=== PATIENT | female | born 1995 | race Caucasian/White ===

== ENCOUNTER 2017-03-11 16:55 | Emergency (ER) | payer SELFPAY ==
[~2017-03-11] VITALS: Ht 162.6 cm; Wt 60.0 kg
[2017-03-11 16:57] VITALS: BP 126/64; PULSE 88; RESP 18; TEMP 97.7; O2SAT 99
[2017-03-11] MEDS ORDERED: POLY10O RIGHT EYE (17:13)
--- NOTE | 2017-03-11 17:14 | PD ---
HPI Chief Complaint: Exposure to Blood/Body Fluids Time Seen by Provider: 17:11 Travel History International Travel<30 days: No Contact w/Intl Traveler<30days: No Traveled to known affect area: No History of Present Illness HPI 21-year-old female presents to emergency Department with complaint of exposure to bodily fluids during a paracentesis to her right eye. She is a student was performing a paracentesis while here at [employer]. Flushed her eye for 10 minutes prior to arrival to the ER. Denies change in vision. Up-to-date on her tetanus vaccination. Has no other medical complaints. No known allergies. No other modifying factors or associated signs and symptoms. PFSH Past Medical History ?: Not Social History Alcohol Use: No Tobacco Use: No Substance Use: No Allergies-Medications (Allergen,Severity, Reaction): Coded Allergies: No Known Allergies (Unverified , 03/11/17) Reported Meds & Prescriptions Reported Meds & Active Scripts Active Polytrim Opth Drops (Polymyxin/Trimethoprim Sulfate) 10,000-0.1 Unit/Ml-% Soln 2 Drop RIGHT EYE Q6HR 7 Days Review of Systems Except as stated in HPI: all other systems reviewed are Neg Physical Exam Narrative GENERAL: Well-nourished, well-developed female patient, in no acute distress SKIN: Warm and dry. HEAD: Atraumatic. Normocephalic. EYES: Pupils equal and round at 3 mm. No drainage. Right eye without erythema , edema. Right Eye ph 7. ENT: Mucosa pink and moist. Airway patent. NECK: Trachea midline. CARDIOVASCULAR: Regular rate. RESPIRATORY: No accessory muscle use. GASTROINTESTINAL: Flat. NEUROLOGICAL: Awake and alert. Oriented 3. No obvious cranial nerve deficits. Motor grossly within normal limits. Normal speech. PSYCHIATRIC: Appropriate mood and affect; insight and judgment normal. Data Data Last Documented VS Vital Signs Date Time Temp Pulse Resp B/P Pulse Ox O2 Delivery O2 Flow Rate FiO2 03/11/17 16:57 97.7 88 18 126/64 99 MDM Medical Decision Making Medical Screen Exam Complete: Yes Emergency Medical Condition: Yes Medical Record Reviewed: Yes Differential Diagnosis Exposure to bodily fluid, eye exposure, medical clearance Narrative Course 21-year-old female with exposure to the right eye with bodily fluid during a paracentesis. I was flushed for 10 minutes prior to arrival to the ER. PH of the right eye is 7. Patient denies change in vision. Patient is up-to-date on her tetanus vaccination. The patient was provided with a prescription for Polytrim eyedrops. Patient verbalizes understanding and agreement with treatment plan. Patient is medically cleared and stable for discharge. Discussed reasons to return to the emergency department. Instructed patient to follow up with primary care provider. Patient agrees with treatment plan. The patients vital signs are stable and the patient is stable for outpatient follow- up and treatment. Patient discharged home, stable and in no acute distress. Diagnosis Primary Impression: Exposure to blood or body fluid Referrals: Primary Care Physician Patient Instructions: General Instructions Departure Forms: School Release, Return to School Date: March 12, 2017 Tests/Procedures, Work Release Enter return to work date: March 12, 2017 Additional Instructions: Antibiotic eyedrops as prescribed Follow-up with primary care provider Return to the emergency department immediately with worsening symptoms Med/Other Pt SpecificInfo: Prescription(s) given Scripts Polymyxin B-Trimethoprim Opth Drops (Polytrim Opth Drops)10,000-0.1 Unit/Ml-% Soln2 Drop RIGHT EYE Q6HR 7 Days Ref 0 Prov:Maude Rust 03/11/17 Disposition: 01 DISCHARGE HOME Condition: Stable Maude Rust March 11, 2017 17:14
== END 2017-03-11 17:26 | disposition home or self-care (01) ==
LOC: NEPK 16:55
DX: Z77.21 Contact with and (suspected) exposure to potentially hazardous body fluids (principal)
CPT/HCPCS: 99283

== ENCOUNTER 2017-03-12 17:04 | Emergency (ER) | payer SELFPAY ==
[~2017-03-12] VITALS: Ht 162.6 cm; Wt 59.0 kg
[~2017-03-12 17:04] MED LIST: POLY10O RIGHT EYE
[2017-03-12 17:05] VITALS: BP 118/76; PULSE 84; RESP 20; TEMP 97.6; O2SAT 96
--- NOTE | 2017-03-12 17:36 | PD ---
HPI Chief Complaint: Exposure to Blood/Body Fluids Time Seen by Provider: 17:36 Travel History International Travel<30 days: No Contact w/Intl Traveler<30days: No Traveled to known affect area: No History of Present Illness HPI Patient returns back to the emergency department after being seen yesterday after exposure with paracentesis fluid to her right eye needing blood draw for initiation of exposure protocol. She has no other medical complaints. No other modifying factors or associated signs and symptoms. PFSH Past Medical History ?: Not Social History Alcohol Use: No Tobacco Use: No Substance Use: No Allergies-Medications (Allergen,Severity, Reaction): Coded Allergies: No Known Allergies (Unverified , 03/12/17) Reported Meds & Prescriptions Reported Meds & Active Scripts Active Polytrim Opth Drops (Polymyxin/Trimethoprim Sulfate) 10,000-0.1 Unit/Ml-% Soln 2 Drop RIGHT EYE Q6HR 7 Days Review of Systems Except as stated in HPI: all other systems reviewed are Neg Physical Exam Narrative GENERAL: Well-nourished, well-developed female patient, in no acute distress SKIN: Warm and dry. HEAD: Atraumatic. Normocephalic. EYES: Pupils equal and round. No scleral icterus. No injection or drainage. ENT: Mucosa pink and moist. Airway patent. NECK: Trachea midline. CARDIOVASCULAR: Regular rate. RESPIRATORY: No accessory muscle use. GASTROINTESTINAL: Flat. MUSCULOSKELETAL: No obvious deformities. No clubbing. No cyanosis. No edema. NEUROLOGICAL: Awake and alert. Oriented 3. No obvious cranial nerve deficits. Motor grossly within normal limits. Normal speech. PSYCHIATRIC: Appropriate mood and affect; insight and judgment normal. Data Data Last Documented VS Vital Signs Date Time Temp Pulse Resp B/P Pulse Ox O2 Delivery O2 Flow Rate FiO2 03/12/17 17:05 97.6 84 20 118/76 96 Room Air MDM Medical Decision Making Medical Screen Exam Complete: Yes Emergency Medical Condition: Yes Medical Record Reviewed: Yes Differential Diagnosis Exposure to body fluid, exposure to blood, medical clearance Narrative Course This is a 21-year-old female that I saw yesterday after being splashed in the eye during a paracentesis procedure and exposed to body fluid or blood. Postexposure protocol initiated. Instructed patient to follow up with her employee med. Patient verbalizes understanding and agreement with treatment plan. Patient is medically cleared and stable for discharge. Discussed reasons to return to the emergency department. Instructed patient to follow up with primary care provider. Patient agrees with treatment plan. The patients vital signs are stable and the patient is stable for outpatient follow-up and treatment. Patient discharged home, stable and in no acute distress. Diagnosis Primary Impression: Exposure to blood or body fluid Referrals: Employ Med Primary Care Physician Patient Instructions: Postexposure Prophylaxis (ED) Departure Forms: School Release, Return to School Date: March 12, 2017 Tests/Procedures Additional Instructions: Follow blood exposure protocol instructions Follow-up with employee med Follow-up with primary care Return to emergency department for worsening of symptoms Med/Other Pt SpecificInfo: No Change to Meds, No Meds Exist/No RX given Disposition: DISCHARGE HOME Condition: Stable Maude Rust March 12, 2017 17:36
[2017-03-13 14:06] LABS: HEPATITIS B SURFACE ANTIBODY 17.2 mIU/mL
== END 2017-03-12 18:32 | disposition home or self-care (01) ==
LOC: NEPK 17:04
DX: Z77.21 Contact with and (suspected) exposure to potentially hazardous body fluids (principal)
CPT/HCPCS: 86317; 86703; 86803; 99282